=== PATIENT | female | born 1995 | race Caucasian/White ===

== ENCOUNTER 2022-05-27 15:23 | Emergency (ER) | payer MEDICAID ==
[~2022-05-27] VITALS: Ht 157.5 cm; Wt 112.6 kg
[2022-05-27 15:31] VITALS: BP 133/85
[2022-05-27 16:01] VITALS: BP 123/63
[2022-05-27] MEDS ORDERED: AMOX/K CLAV875 M1 PO (16:15)
[2022-05-27] MEDS ORDERED: ZYRTEC10 MG PO (16:16)
[2022-05-27 16:21] VITALS: BP 123/63
== END 2022-05-27 16:27 | disposition home or self-care (01) ==
LOC: ED 15:23
DX: H66.91 Otitis media, unspecified, right ear (principal); Z20.822 Contact with and (suspected) exposure to COVID-19

== ENCOUNTER 2024-08-15 21:32 | Emergency (ER) | payer SELFPAY ==
[2024-08-15] VITALS (8 sets, daily range): BP systolic 116–138; BP diastolic 64–87
[~2024-08-15] VITALS: Ht 157.5 cm; Wt 115.0 kg
[~2024-08-15 21:32] MED LIST: AMOX/K CLAV875 M1 PO; ZYRTEC10 MG PO
[2024-08-15] MEDS ORDERED: SODIUM CHLORIDE 0.9% 1,000 ML IV STA (21:45)
[2024-08-15] MEDS ORDERED: DiphenhydrAMINE HCL 50 MG/ML SDV IV ONE ×2 (21:50→22:50)
[2024-08-15] MEDS ORDERED: PROMETHAZINE HCL 25 MG/ML AMP IV ONE (21:50)
[2024-08-15 22:03] LABS: BASO% 0.1 % (0-3); EOS% 0.7 % (0-8); HEMATOCRIT 34.6 % (37.0-47.0); HEMOGLOBIN 10.7 g/dl (12.0-16.0); IMMATURE GRANULOCYTES 0.2 % (0.0-5.0); LYMPH% 21.5 % (15-41); MEAN CELL VOLUME 88.9 fL CALC (80.0-100.0); MEAN CORPUSCULAR HGB 27.5 pG CALC (26.0-32.0); MEAN CORPUSCULAR HGB CONC 30.9 g/dL CAL (32.0-36.0); MONO% 5.7 % (2-13); NEUT% 71.8 % (42-76); RED BLOOD COUNT 3.89 mill/uL (4.20-5.60); RED CELL DISTRI WIDTH 14.4 % (11.5-15.5)
[2024-08-15 22:23] LABS: ALBUMIN 4.4 g/dL (3.2-5.0); ALKALINE PHOSPHATASE 56 u/l (38-126); ANION GAP 9 (6-22 (CALC)); BILIRUBIN, TOTAL 0.5 mg/dL (0.02-1.3); BUN 12 mg/dL (7-17); BUN/CREATININE RATIO 20 (12-20 (CALC)); CARBON DIOXIDE 26 mmol/l (22-30); CHLORIDE 110 mmol/l (95-108); CREATININE 0.6 mg/dL (0.5-1.0); ESTIMATED GFR 123 ML/MIN (>=90 (CALC)); POTASSIUM 3.9 mmol/l (3.5-5.1); SGOT/AST 22 u/l (14-36); SODIUM 141 mmol/l (137-146); TOTAL PROTEIN 7.6 g/dL (6.3-8.2)
[2024-08-15] MEDS ORDERED: LACTATED RINGER'S 1,000 ML IV ONE (23:20)
[2024-08-16] MEDS ORDERED: VISTARIL25 MG PO (00:06)
[2024-08-16 00:30] VITALS: BP 117/76
[2024-08-16 00:33] LABS: URINE BILIRUBIN - DIPSTICK Negative (NEGATIVE); URINE BLOOD DIPSTICK Moderate (NEGATIVE); URINE GLUCOSE - DIPSTICK Negative (NEGATIVE); URINE KETONE Trace mg/dL (NEGATIVE); URINE LEUK ESTERASE Negative (NEGATIVE); URINE NITRITE - DIPSTICK Negative (Negative); URINE PH 6.5 (4.5-8.0); URINE PROTEIN - DIPSTICK Negative (NEG-TRACE); URINE UROBILINOGEN - DIPSTICK 0.2 E.U./dL (0.2)
[2024-08-16 00:34] LABS: URINE COLOR Yellow
[2024-08-16 00:55] LABS: URINE SQUAMOUS EPITHELIAL CELL FEW EPI/hpf (0-FEW); URINE WBC 0-2 WBC/hpf (0-5)
== END 2024-08-16 02:08 | disposition home or self-care (01) | DRG 313 ==
LOC: ED 21:32
PROVIDERS: Family Medicine
DX: R07.89 Other chest pain (principal); R11.0 Nausea; F41.9 Anxiety disorder, unspecified; Z20.822 Contact with and (suspected) exposure to COVID-19